=== PATIENT | male | born 1985 | race African-American/Black ===

== ENCOUNTER 2017-01-25 22:42 | Emergency (ER) | payer MEDICAID ==
[~2017-01-25] VITALS: Ht 182.9 cm; Wt 97.5 kg
[~2017-01-25 22:42] MED LIST: ALBUTEROL17 GM INH; BACTRIM DS TABL1 TA2 PO; CLEOCIN HCL150 MG PO; FIORICET1 TAB PO; IBUPROFEN800 MG PO; KEFLEX500 M1 PO; LORTAB 5-325 M1 EACH PO; NAPROXEN PO; NO MEDICATIONS; PHENERGAN DM1 ML PO; PHENERGAN W/CO120 ML PO; PREDNISONE PO; PROAIR HFA8.5 GM INH; ROBAXIN500 MG PO; TYLENOL #3 PO; VOLTAREN75 MG PO; ZITHROMAX1 G/PKT PO; ZOFRAN ODT4 MG PO
== END 2017-01-26 00:51 | disposition home or self-care (01) ==
LOC: SED 22:42
DX: L02.31 Cutaneous abscess of buttock (principal); J06.9 Acute upper respiratory infection, unspecified; F17.210 Nicotine dependence, cigarettes, uncomplicated
CPT/HCPCS: 99283

== ENCOUNTER 2017-03-16 11:36 | Emergency (ER) | payer MEDICAID ==
[2017-03-16] MEDS ORDERED: NO MEDICATIONS (11:52)
== END 2017-03-16 13:40 | disposition home or self-care (01) ==
LOC: SED 11:36
DX: L02.31 Cutaneous abscess of buttock (principal)
CPT/HCPCS: 96372; 99282; J1885